=== PATIENT | male | born 1985 | race Two or more races ===

== ENCOUNTER 2020-04-26 14:44 | Emergency (ER) | payer MEDICAID, OTHER ==
[~2020-04-26] VITALS: Ht 175.3 cm; Wt 99.8 kg
[2020-04-26 15:05] VITALS: BP 137/84
[2020-04-26] MEDS ORDERED: ACETAMINOPHEN 500 MG TAB PO ONE (15:15)
[2020-04-26] MEDS ORDERED: methylPREDNISolone SOD SUCC 125 MG/2 ML VL IM ONE (15:30)
[2020-04-26] MEDS ORDERED: cefTRIAXone SOD 1,000 MG VL IM ONE (15:30)
== END 2020-04-26 16:11 | disposition home or self-care (01) ==
LOC: ER 14:44
DX: H66.92 Otitis media, unspecified, left ear (principal); J03.90 Acute tonsillitis, unspecified
CPT/HCPCS: 96372; 99284; J0696; J2930